=== PATIENT | female | born 1945 | race Caucasian/White ===

== ENCOUNTER → 2016-04-27 | Outpatient (CLI) | payer BC ==
[~2016-04-27] MED LIST: ASCA500 PO; ASPI81TA28 PO; B-COTAB18 PO; CHOL100010 PO; CHRO1CAP3 PO; COEN75CA PO; FLVHFA44 INH; MAGN125C; MCRK/10; OXYC1TAB3 PO; PRED50TA PO; PROM25TA9 PO; SPRIN/30 INH; VITA400C28; VNTHFA/IN INH; [UNRECOGNIZED DRUG - OTHER]
[2016-05-04 22:19] LABS: ASPERGILLUS FUMIGATUS NEGATIVE (NEGATIVE); M. FAENI (S. RECTIVIRGULA) NEGATIVE (NEGATIVE); PIGEON SERUM NEGATIVE (NEGATIVE); SACCHAROMONOSPORA VIRIDIS AB NEGATIVE (NEGATIVE); THERMOACTINOMYCES CANDIDUS NEGATIVE (NEGATIVE); THERMOACTINOMYCES VULGARIS NEGATIVE (NEGATIVE)
== END | disposition home or self-care (01) ==
LOC: C.LAB1850 12:37
PROVIDERS: ATTEND Internal Medicine Pulmonary Disease
DX: J44.9 Chronic obstructive pulmonary disease, unspecified (principal)

== ENCOUNTER 2016-05-18 14:41 | Emergency (ER) | payer BC ==
[~2016-05-18] VITALS: Ht 167.6 cm; Wt 89.3 kg
[~2016-05-18 14:41] MED LIST changes: -ASCA500 PO; -ASPI81TA28 PO; -B-COTAB18 PO; -CHOL100010 PO; -CHRO1CAP3 PO; -COEN75CA PO; -FLVHFA44 INH; -MAGN125C; -MCRK/10; -PROM25TA9 PO; -SPRIN/30 INH; -VITA400C28; -VNTHFA/IN INH
[2016-05-18 14:43] VITALS: TEMP 36.6; Ht 167.6 cm; Wt 89.3 kg
--- NOTE | 2016-05-18 15:01 | EMERGENCY ROOM VISIT NOTE ---
History Report prepared by Silverio: Mark Álvarez Under the Supervision of: Dr. Ananth Louis D.O. First contact with patient: 14:48 Chief Complaint: NEURO SYMPTOMS Stated Complaint: NUMBNESS LT HAND/ARM, ELBOW PAIN, DIZZY/HEAVY 1 WK History of Present Illness The patient is a 70 year old female who presents to the Emergency Room with complaints of persistent left hand numbness that started upon waking this morning. She says her pinky finger was initially the only thing that was tingly and numb, but then the numbness spread into the next 2 adjacent fingers, hand, and down her arm. She has a history of heart disease in her family, so she thought it would be best to be seen here. The patient also notes that she has had some discoloration of her left elbow recently, but has resolved. She says her left elbow is uncomfortable, and feels "funny". The patient notes that her elbow is not numb. The patient denies any nausea, vomiting, headaches, or chest pain. She takes one baby aspirin daily She has COPD, and takes 2 inhalers per day. The patient says that she has been coughing a bit more the past few days. Source of History: patient Onset: Upon waking this morning Position: hand (left) Quality: numbness Timing: other (persistent) Associated Symptoms: + cough, + numbness (and tingling down her left arm, denies elbow numbness), No chest pain, No headache, No nausea, No vomiting Note: Associated symptoms: Left elbow discomfort. Review of Systems See HPI for pertinent positives & negatives. A total of 10 systems reviewed and were otherwise negative. Past Medical & Surgical Medical Problems: (1) Carcinoma (2) COPD (chronic obstructive pulmonary disease) (3) Emphysema, unspecified Family History Cancer Gallbladder disease Heart disease Hypertension Lung disease Social History Smoking Status: Former Smoker Alcohol Use: none Marital Status: Housing Status: lives with friends Occupation Status: retired Current/Historical Medications Scheduled Ascorbic Acid (Vitamin C), 1 TAB PO DAILY Aspirin (Aspirin Ec), 81 MG PO DAILY B-Complex Vitamins (Vitamin B Complex), 1 TAB PO DAILY Cholecalciferol (Vitamin D), 1 TAB PO DAILY Chromium Picolinate (Chromium Picolinate), 1 CAP PO DAILY Fluticasone Propionate (Flovent Hfa), 2 PUFFS INH BID Tiotropium Tate (Spiriva Handihaler), 1 CAP INH DAILY Scheduled PRN Albuterol Hfa (Ventolin Hfa), 2 PUFFS INH QID PRN for SOB/Wheezing Promethazine Hcl (Phenergan), 25 MG PO Q6H PRN for Nausea Miscellaneous Medications Coenzyme Q10 (Ubidecarenone) (Co Q-10), Unknown Dose PO Magnesium Citrate (mg Suppleme (Magnesium Citrate), Unknown Dose Potassium Chloride (K-Tabs), Unknown Dose Vitamin E (Alph-E), Unknown Dose Allergies Coded Allergies: Cephalosporins (Unverified Allergy, Mild, 05/18/16) Erythromycin (Unverified Allergy, Mild, 05/18/16) Oxaprozin (Unverified Allergy, Mild, 05/18/16) Penicillins (Unverified Allergy, Mild, 05/18/16) Sulfa Antibiotics (Unverified Allergy, Unknown, SEVERE ITCHING, 05/18/16) Physical Exam Vital Signs Date Time Temp Pulse Resp B/P Pulse Ox O2 Delivery O2 Flow Rate FiO2 05/18/16 17:13 81 05/18/16 15:53 78 20 180/85 97 Room Air 05/18/16 15:14 94 Room Air 05/18/16 14:43 36.6 90 18 155/84 94 Room Air Physical Exam GENERAL: Patient is awake, alert, and in no acute distress. Patient is resting comfortably and showing no signs of anxiety EYES: Right conjunctival hemorrhage noted. PERRL. EOMI. EARS, NOSE, MOUTH AND THROAT: The nose is without any evidence of any deformity. Mucous membranes are moist tongue is midline NECK: The neck is nontender and supple. RESPIRATORY: Normal respiratory effort is noted there is no evidence of wheezing rhonchi or rales CARDIOVASCULAR: Regular rate and rhythm noted there no murmurs rubs or gallops normal S1 normal S2 GASTROINTESTINAL: The abdomen is soft. Bowel sounds are present in all quadrants. Abdomen is nontender MUSCULOSKELETAL/EXTREMITIES: There is no evidence of gross deformity full range of motion is noted in the hips and shoulders SKIN: There is no obvious evidence of any rash. There are no petechiae, pallor or cyanosis noted. NEUROLOGIC: Patient is awake alert and oriented x3. No facial droop noted. Patellar tendon reflexes are 2+ bilaterally. No drift in upper extremities. Strength was symmetric in both median, ulnar, and radial distributions. Reproduction of symptoms with percussion over left ulnar tunnel. Medical Decision & Procedures ER Provider Diagnostic Interpretation: Radiology results as stated below per my review and radiologist interpretation: CT OF THE HEAD WITHOUT CONTRAST CLINICAL HISTORY: Altered mental status. Weakness. Left-sided numbness. COMPARISON STUDY: No previous studies for comparison. CT DOSE: 720.95 mGycm TECHNIQUE: Helical axial images of the head were obtained without IV contrast. Automated exposure control was utilized for the study. FINDINGS: No acute intracranial hemorrhage, midline shift or mass effect is present. Ventricular system is normal. Basilar cisterns are patent. There are no extra-axial collections. Hypodensity within left basal ganglia could reflect a prominent perivascular space or old lacunar infarct. There are no findings to suggest acute dural sinus thrombosis or acute territorial infarct. Visualized portions of the sinuses and mastoid air cells are clear. There are no significant calvarial abnormalities. IMPRESSION: No acute intracranial findings. Electronically signed by: Armen Live M.D. 05/18/2016 3:47 PM Dictated Date/Time: 05/18/2016 3:45 PM CHEST ONE VIEW PORTABLE HISTORY: EVALUATE ALTERED MENTAL STATUS/WEAKNESS COMPARISON: Chest 11/30/2014. FINDINGS: The heart is normal in size. The lungs are essentially clear. No pleural effusions. No pneumothorax. Mild elevation of the right hemidiaphragm. This remains unchanged. IMPRESSION: No significant change compared to the prior study. No acute process. Electronically signed by: Nathan Springer M.D. 05/18/2016 3:36 PM Dictated Date/Time: 05/18/2016 3:36 PM Laboratory Results 05/18/16 14:10 Red Blood Count 4.74, Mean Corpuscular Volume 90.5, Mean Corpuscular Hemoglobin 31.2, Mean Corpuscular Hemoglobin Concent 34.5, Mean Platelet Volume 12.3, Neutrophils (%) (Auto) 69.7, Lymphocytes (%) (Auto) 22.7, Monocytes (%) (Auto) 5.7, Eosinophils (%) (Auto) 1.3, Basophils (%) (Auto) 0.4, Neutrophils # (Auto) 5.79, Lymphocytes # (Auto) 1.88, Monocytes # (Auto) 0.47, Eosinophils # (Auto) 0.11, Basophils # (Auto) 0.03 05/18/16 14:10 Test 05/18/16 14:10 05/18/16 15:50 White Blood Count 8.30 K/uL (4.8-10.8) Red Blood Count 4.74 M/uL (4.2-5.4) Hemoglobin 14.8 g/dL (12.0-16.0) Hematocrit 42.9 % (37-47) Mean Corpuscular Volume 90.5 fL (80-100) Mean Corpuscular Hemoglobin 31.2 pg (25-34) Mean Corpuscular Hemoglobin Concent 34.5 g/dl (32-36) Platelet Count 290 K/uL (130-400) Mean Platelet Volume 12.3 fL (7.4-10.4) Neutrophils (%) (Auto) 69.7 % Lymphocytes (%) (Auto) 22.7 % Monocytes (%) (Auto) 5.7 % Eosinophils (%) (Auto) 1.3 % Basophils (%) (Auto) 0.4 % Neutrophils # (Auto) 5.79 K/uL (1.4-6.5) Lymphocytes # (Auto) 1.88 K/uL (1.2-3.4) Monocytes # (Auto) 0.47 K/uL (0.11-0.59) Eosinophils # (Auto) 0.11 K/uL (0-0.5) Basophils # (Auto) 0.03 K/uL (0-0.2) RDW Standard Deviation 44.0 fL (36.4-46.3) RDW Coefficient of Variation 13.2 % (11.5-14.5) Immature Granulocyte % (Auto) 0.2 % Immature Granulocyte # (Auto) 0.02 K/uL (0.00-0.02) Prothrombin Time 10.9 SECONDS (9.0-12.0) Prothromb Time International Ratio 1.0 (0.9-1.1) Activated Partial Thromboplast Time 24.5 SECONDS (21.0-31.0) Partial Thromboplastin Ratio 0.9 Anion Gap 12.0 mmol/L (3-11) Est Creatinine Clear Calc Drug Dose 62.2 ml/min Estimated GFR () 69.9 Estimated GFR (Non- 60.3 BUN/Creatinine Ratio 12.5 (10-20) Calcium Level 9.8 mg/dl (8.5-10.1) Magnesium Level 2.1 mg/dl (1.8-2.4) Total Bilirubin 0.5 mg/dl (0.2-1) Direct Bilirubin 0.1 mg/dl (0-0.2) Aspartate Amino Transf (AST/SGOT) 51 U/L (15-37) Alanine Aminotransferase (ALT/SGPT) 95 U/L (12-78) Alkaline Phosphatase 142 U/L (45-117) Troponin I < 0.015 ng/ml (0-0.045) Total Protein 7.6 gm/dl (6.4-8.2) Albumin 4.3 gm/dl (3.4-5.0) Beta-Hydroxybutyric Acid 4.77 mg/dL (0.2-2.81) Thyroid Stimulating Hormone (TSH) 1.720 uIu/ml (0.300-4.500) Urine Color DK YELLOW Urine Appearance CLEAR (CLEAR) Urine pH 5.0 (4.5-7.5) Urine Specific Harrod 1.040 (1.000-1.030) Urine Protein NEG (NEG) Urine Glucose (UA) 3+ (NEG) Urine Ketones 1+ (NEG) Urine Occult Blood NEG (NEG) Urine Nitrite NEG (NEG) Urine Bilirubin NEG (NEG) Urine Urobilinogen NEG (NEG) Urine Leukocyte Esterase NEG (NEG) Laboratory results per my review. Medications Administered Medications (Trade) Dose Ordered Sig/Van Route Start Time Stop Time Status Last Admin Dose Admin Sodium Chloride (Nss 1000ml) 1,000 ml @ 999 mls/hr Q1H1M STAT IV 05/18/16 16:41 05/18/16 17:41 05/18/16 16:41 999 MLS/HR ECG Indication: weakness Rate (beats per minute): 74 Rhythm: normal sinus Findings: no ectopy, other (no acute ST segment abnormalities) Change: no significant change (from July 23 2005) ED Course 1451: The patient was evaluated in room C7. A complete history and physical examination were performed. 1641: Ordered NSS 1000 ml @ 999 mls/hr IV. 1724: Upon reevaluation, the patient is resting comfortably. I discussed the results and treatment plan with her. She verbalized agreement of the treatment plan. She will be discharged home. Medical Decision Nursing notes reviewed. Differential diagnosis: Etiologies such as metabolic, infection, hypo/hyperglycemia, electrolyte abnormalities, cardiac sources, intracerebral event, toxicologic, neurologic, as well as others were entertained. The patient is a 70-year-old female who presented to the emergency department for an evaluation of numbness in the left upper extremity. The numbness appear to be in a distribution consistent with the ulnar nerve. There is no motor deficit. The patient had tenderness with percussion over the ulnar tunnel on the left. The patient does not have a history of diabetes but was found have hyperglycemia and signs of dehydration. She was treated with IV fluids in the emergency department. She was very concerned that she may have had a stroke. For this reason other laboratory radiographic studies were obtained and discussed patient's findings with her. She did not appear to have any acute abnormality on CT the head. I discussed the hyperglycemia with her. I recommended that she follow-up with her family doctor this week for reevaluation especially for formal diabetes testing and to start diabetic medications. I also encouraged her to drink plenty clear liquids and follow-up with her doctor about the left hand complaints. She may require an EMG or possibly a referral to a specialist. She was encouraged to return to the emergency department immediately if symptoms change worsen or the need arises. Impression Primary Impression: Hyperglycemia Additional Impressions: Dehydration Ulnar tunnel syndrome Numbness of left hand Scribe Attestation The scribe's documentation has been prepared under my direction and personally reviewed by me in its entirety. I confirm that the note above accurately reflects all work, treatment, procedures, and medical decision making performed by me. Departure Information Dispostion Home / Self-Care Referrals Juana Duran (PCP) Forms HOME CARE DOCUMENTATION FORM, IMPORTANT VISIT INFORMATION, WORK / SCHOOL INSTRUCTIONS Patient Instructions ED Palsy Unlar Nerve, Hyperglycemia, My [facility] Additional Instructions Call your family to schedule a follow-up appointment. Continue using Motrin and Tylenol as directed for pain. Discussed the possibility that you may need to be started on medications for diabetes with your family doctor. You may also need further testing to evaluate the numbness in her left arm specifically an EEG to determine if the problem is with her older nerve at the elbow. Return to the emergency department immediately if symptoms change worsen or need arises. Problem Qualifiers Additional Impressions: Ulnar tunnel syndrome Laterality: left Qualified Codes: G56.22 - Lesion of ulnar nerve, left upper limb
[2016-05-18 15:14] VITALS: O2SAT 94
[2016-05-18 15:20] LABS: BASO % 0.4 %; BASO ABS # 0.03 K/uL (0-0.2); COMPLETE YES; EOS % 1.3 %; HEMATOCRIT 42.9 % (37-47); IG% 0.2 %; LYMPH % 22.7 %; LYMPH ABS # 1.88 K/uL (1.2-3.4); MEAN CELL VOLUME 90.5 fL (80-100); MEAN CORPUSCULAR HEMOGLOBIN 31.2 pg (25-34); MEAN CORPUSCULAR HGB CONC 34.5 g/dl (32-36); MEAN PLATELET VOLUME 12.3 fL (7.4-10.4); MONO % 5.7 %; NEUT % 69.7 %; PLATELET COUNT 290 K/uL (130-400); RED BLOOD COUNT 4.74 M/uL (4.2-5.4)
--- NOTE | 2016-05-18 15:38 | DIAGNOSTIC IMAGING REPORT ---
CHEST ONE VIEW PORTABLE HISTORY: EVALUATE ALTERED MENTAL STATUS/WEAKNESS COMPARISON: Chest 11/30/2014. FINDINGS: The heart is normal in size. The lungs are essentially clear. No pleural effusions. No pneumothorax. Mild elevation of the right hemidiaphragm. This remains unchanged. IMPRESSION: No significant change compared to the prior study. No acute process. Electronically signed by: Nathan Springer M.D. 05/18/2016 3:36 PM Dictated Date/Time: 05/18/2016 3:36 PM
[2016-05-18 15:39] LABS: PARTIAL THROMBOPLASTIN RATIO 0.9; PROTHROMBIN TIME (PATIENT) 10.9 SECONDS (9.0-12.0)
[2016-05-18] MEDS ORDERED: SPRIN/30 INH (15:40)
[2016-05-18] MEDS ORDERED: VITA400C28 (15:40)
[2016-05-18] MEDS ORDERED: ASPI81TA28 PO (15:40)
[2016-05-18] MEDS ORDERED: FLVHFA44 INH (15:40)
[2016-05-18] MEDS ORDERED: ASCA500 PO (15:40)
[2016-05-18] MEDS ORDERED: MCRK/10 (15:40)
[2016-05-18] MEDS ORDERED: COEN75CA PO (15:40)
[2016-05-18] MEDS ORDERED: CHRO1CAP3 PO (15:40)
[2016-05-18] MEDS ORDERED: CHOL100010 PO (15:40)
[2016-05-18] MEDS ORDERED: PROM25TA9 PO (15:40)
[2016-05-18] MEDS ORDERED: VNTHFA/IN INH (15:40)
[2016-05-18] MEDS ORDERED: MAGN125C (15:40)
[2016-05-18] MEDS ORDERED: B-COTAB18 PO (15:40)
--- NOTE | 2016-05-18 15:50 | DIAGNOSTIC IMAGING REPORT ---
CT OF THE HEAD WITHOUT CONTRAST CLINICAL HISTORY: Altered mental status. Weakness. Left-sided numbness. COMPARISON STUDY: No previous studies for comparison. CT DOSE: 720.95 mGycm TECHNIQUE: Helical axial images of the head were obtained without IV contrast. Automated exposure control was utilized for the study. FINDINGS: No acute intracranial hemorrhage, midline shift or mass effect is present. Ventricular system is normal. Basilar cisterns are patent. There are no extra-axial collections. Hypodensity within left basal ganglia could reflect a prominent perivascular space or old lacunar infarct. There are no findings to suggest acute dural sinus thrombosis or acute territorial infarct. Visualized portions of the sinuses and mastoid air cells are clear. There are no significant calvarial abnormalities. IMPRESSION: No acute intracranial findings. Electronically signed by: Armen Live M.D. 05/18/2016 3:47 PM Dictated Date/Time: 05/18/2016 3:45 PM
[2016-05-18 15:57] LABS: ALT/SGPT 95 U/L (12-78); BLOOD UREA NITROGEN 12 mg/dl (7-18); BUN/CREATININE RATIO 12.5 (10-20); CALCIUM 9.8 mg/dl (8.5-10.1); CARBON DIOXIDE 25 mmol/L (21-32); CHLORIDE 100 mmol/L (98-107); CREATININE 0.96 mg/dl (0.60-1.20); GLUCOSE 332 mg/dl (70-99); MAGNESIUM 2.1 mg/dl (1.8-2.4); POTASSIUM 4.1 mmol/L (3.5-5.1); SODIUM 137 mmol/L (136-145)
[2016-05-18 16:03] LABS: ALKALINE PHOSPHATASE 142 U/L (45-117); AST/SGOT 51 U/L (15-37)
[2016-05-18 16:05] LABS: URINE APPEARANCE CLEAR (CLEAR); URINE BILIRUBIN NEG (NEG); URINE COLOR DK YELLOW; URINE NITRITE NEG (NEG); UROBILINOGEN NEG (NEG)
[2016-05-18 16:08] LABS: MANUAL MICROSCOPIC REQUIRED? NO; REVIEW REQ? NO
[2016-05-18 16:10] LABS: BETA-HYDROXYBUTYRATE 4.77 mg/dL (0.2-2.81)
[2016-05-18] MEDS ORDERED: SODIUM CHLORIDE 0.9% 1000ML 1,000 ML IV STA (16:41)
[2016-05-18 17:41] VITALS: BP 161/72; PULSE 76; O2SAT 96
== END 2016-05-18 17:51 | disposition home or self-care (01) ==
LOC: C.EDB 14:42 → C.EDC 17:51
DX: G56.22 Lesion of ulnar nerve, left upper limb (principal); E86.0 Dehydration; R73.9 Hyperglycemia, unspecified; H11.31 Conjunctival hemorrhage, right eye; Z79.82 Long term (current) use of aspirin; J44.9 Chronic obstructive pulmonary disease, unspecified; Z85.9 Personal history of malignant neoplasm, unspecified; Z80.9 Family history of malignant neoplasm, unspecified; Z82.49 Family history of ischemic heart disease and other diseases of the circulatory system; Z87.891 Personal history of nicotine dependence; Z79.899 Other long term (current) drug therapy

== ENCOUNTER → 2016-12-03 | Outpatient (CLI) | payer BC ==
[~2016-12-03] MED LIST changes: +ASCA500 PO; +ASPI81TA28 PO; +B-COTAB18 PO; +CHOL100010 PO; +CHRO1CAP3 PO; +COEN75CA PO; +FLVHFA44 INH; +MAGN125C; +MCRK/10; -OXYC1TAB3 PO; -PRED50TA PO; +PROM25TA9 PO; +SPRIN/30 INH; +VITA400C28; +VNTHFA/IN INH; -[UNRECOGNIZED DRUG - OTHER]
--- NOTE | 2016-12-03 08:24 | DIAGNOSTIC IMAGING REPORT ---
ABDOMEN LIMITED (US) HISTORY: Pain. Nausea. NAUSEA,BLOATING,RUQ PAIN, TRANSAMINITIS. COMPARISON: None. FINDINGS: Pancreas: The pancreas demonstrates a normal echotexture. Liver: Unremarkable. Gallbladder: Small 2 mm gallbladder polyp. No shadowing gallstones. Gallbladder wall 3 mm. No pericholecystic fluid. Common bile duct 6 mm. CBD: 6 mm Right kidney: No hydronephrosis. IMPRESSION: Small gallbladder polyp. Otherwise negative study. The above report was generated using voice recognition software. It may contain grammatical, syntax or spelling errors. Electronically signed by: Brad Augustine M.D. 12/03/2016 8:22 AM Dictated Date/Time: 12/03/2016 8:19 AM
== END | disposition home or self-care (01) ==
LOC: C.ULTR 07:49
PROVIDERS: ATTEND Nurse Practitioner Family
DX: R74.0 Nonspecific elevation of levels of transaminase and lactic acid dehydrogenase [LDH] (principal); R10.11 Right upper quadrant pain; R14.0 Abdominal distension (gaseous); R11.0 Nausea; K82.4 Cholesterolosis of gallbladder

== ENCOUNTER → 2016-12-22 | Outpatient (CLI) | payer BC ==
[~2016-12-22] MED LIST changes: +SINCALIDE INJ 1.6 MCG in SODIUM CHLORIDE 0.9% 100ML 100 ML IV ONE
[2016-12-22 13:13] LABS: BASO % 0.3 %; BASO ABS # 0.02 K/uL (0-0.2); COMPLETE YES; EOS % 2.7 %; HEMATOCRIT 44.6 % (37-47); IG% 0.3 %; LYMPH % 20.3 %; LYMPH ABS # 1.35 K/uL (1.2-3.4); MEAN CELL VOLUME 92.5 fL (80-100); MEAN CORPUSCULAR HEMOGLOBIN 30.5 pg (25-34); MONO % 7.1 %; NEUT % 69.3 %; PLATELET COUNT 259 K/uL (130-400); RED BLOOD COUNT 4.82 M/uL (4.2-5.4); WHITE BLOOD COUNT 6.66 K/uL (4.8-10.8)
[2016-12-22 13:45] LABS: ALT/SGPT 48 U/L (12-78); BLOOD UREA NITROGEN 21 mg/dl (7-18); CALCIUM 9.6 mg/dl (8.5-10.1); CARBON DIOXIDE 29 mmol/L (21-32); CHLORIDE 103 mmol/L (98-107); CREATININE 0.76 mg/dl (0.60-1.20); GLUCOSE 102 mg/dl (70-99); POTASSIUM 3.9 mmol/L (3.5-5.1); SODIUM 141 mmol/L (136-145)
[2016-12-22 13:49] LABS: ALKALINE PHOSPHATASE 124 U/L (45-117); AST/SGOT 23 U/L (15-37)
--- NOTE | 2016-12-22 15:02 | DIAGNOSTIC IMAGING REPORT ---
HEPATOBILIARY EF IMAGING CLINICAL HISTORY: 71 years-old Female with R10.11 Right upper quadrant abdominal [id number]. Nausea. TECHNIQUE: Following the intravenous administration of 5.8 mCi of technetium-99m Choletec, sequential abdominal images were obtained. In order to evaluate the contractile response of the gallbladder, 1.6 mcg of Kinevac was administered by slow intravenous infusion over 30 minutes starting approximately 60 minutes after the administration of the radiopharmaceutical. Sequential imaging was continued for 60 min after the start of the Kinevac infusion. COMPARISON: Right upper quadrant ultrasound 12/03/2016 FINDINGS: There is prompt, uniform accumulation of the tracer by the liver. There is normal filling of the intrahepatic ducts, common bile duct and gallbladder and normal excretion of the tracer into the duodenum. There is normal appearing contraction of the gallbladder. The calculated gallbladder ejection fraction is 83% (normal >40%). There is no significant enterogastric reflux. IMPRESSION: 1. Normal contractile response of the gallbladder to Kinevac infusion. 2. Normal biliary imaging study. The above report was generated using voice recognition software. It may contain grammatical, syntax or spelling errors. Electronically signed by: Andrea Mccurdy M.D. 12/22/2016 3:00 PM Dictated Date/Time: 12/22/2016 2:58 PM
== END | disposition home or self-care (01) ==
LOC: C.NUCL 11:52
PROVIDERS: ATTEND Surgery
DX: R10.11 Right upper quadrant pain (principal)

== ENCOUNTER → 2017-06-03 | Outpatient (CLI) | payer BC ==
[~2017-06-03] MED LIST changes: -SINCALIDE INJ 1.6 MCG in SODIUM CHLORIDE 0.9% 100ML 100 ML IV ONE
--- NOTE | 2017-06-03 11:45 | DIAGNOSTIC IMAGING REPORT ---
L ANKLE MIN 3 VIEWS ROUTINE CLINICAL HISTORY: LEFT ANKLE PAIN COMPARISON: None. DISCUSSION: No acute fractures or dislocations are visualized. A corticated bony ossicle adjacent the lateral malleolar tip is felt to be old. There is a plantar calcaneal spur. IMPRESSION: Old post traumatic change. No acute fractures. Electronically signed by: Gaurav Whalen M.D. 06/03/2017 11:44 AM Dictated Date/Time: 06/03/2017 11:43 AM
== END | disposition home or self-care (01) ==
LOC: C.RAD1850 11:34
PROVIDERS: ATTEND Nurse Practitioner Family
DX: M25.572 Pain in left ankle and joints of left foot (principal); Z87.828 Personal history of other (healed) physical injury and trauma

== ENCOUNTER → 2017-09-09 | Outpatient (CLI) | payer BC ==
--- NOTE | 2017-09-09 11:34 | DIAGNOSTIC IMAGING REPORT ---
THYROID ULTRASOUND HISTORY: THYROID NODULES YEARLY F/U COMPARISON: Thyroid ultrasound 11/08/2015. FINDINGS: Right lobe: 5.0 x 2.0 x 1.9 cm. Heterogeneous gland with multiple scattered nodules. Dominant nodule in the lower pole posteriorly measures 1.6 x 1.1 x 1.1 cm. This is not significantly changed. This nodule is hypoechoic. Multiple additional scattered heterogeneous nodules measure up to 1 cm in size. Left lobe: 4.0 x 1.5 x 1.8 cm. Multiple heterogeneous nodules are again noted. Dominant nodule measures 1.4 x 1.1 x 1.0 cm. This previously measured 1.2 cm. Isthmus: 2 mm in thickness. No nodules. IMPRESSION: Multinodular thyroid gland is again noted. The majority of the nodules are not significantly changed compared the 2016 examination. The most suspicious nodule remains within the right thyroid lobe and measures 1.6 cm. Electronically signed by: Nathan Springer M.D. 09/09/2017 11:32 AM Dictated Date/Time: 09/09/2017 11:27 AM
== END | disposition home or self-care (01) ==
LOC: C.ULTR 10:27
PROVIDERS: ATTEND Nurse Practitioner Family
DX: Z09 Encounter for follow-up examination after completed treatment for conditions other than malignant neoplasm (principal); E04.2 Nontoxic multinodular goiter; Z88.0 Allergy status to penicillin; Z88.2 Allergy status to sulfonamides; Z88.1 Allergy status to other antibiotic agents; Z88.8 Allergy status to other drugs, medicaments and biological substances; Z91.048 Other nonmedicinal substance allergy status